=== PATIENT | male | born 1995 | race Hispanic/Latino ===

== ENCOUNTER 2016-12-31 22:10 | Emergency (ER) | payer SELFPAY ==
[~2016-12-31] VITALS: Ht 170.2 cm; Wt 75.0 kg
[~2016-12-31 22:10] MED LIST: IBUP-1827 PO; ONDA8TAB10 PO
[2016-12-31 22:22] VITALS: BP 138/89; PULSE 70; RESP 16; O2SAT 98
--- NOTE | 2016-12-31 22:55 | ED.REPORT ---
HPI-Extremity Problem Lower Date of Service December 31, 2016 ED Provider: Dr. Higuera 21 y/o male with a hx of MCL tear to right knee (several years ago) presents to the ED complaining of right knee injury, just prior to arrival. The pt reports he was playing volleyball when he came down after a jump and landed on his knee. He has been unable to bear weight on that knee since. Nursing Notes Stated Complaint: R KNEE PAIN OR INJURY Chief Complaint: Extremity Trauma Nursing Notes Reviewed: Yes Allergies: Coded Allergies: No Known Allergies (Unverified Allergy, Unknown, 12/31/16) Scheduled Ondansetron ODT (Ondansetron ODT) 8 Mg Tab.rapdis 8 MG PO QID Scheduled PRN Ibuprofen (Ibuprofen) 600 Mg Tablet 600 MG PO QID PRN PRN For Pain General Time Seen by MD: 22:54 Chief Complaint Knee injury right Hx Obtained From: Patient Arrived By: Walk-in Onset Occurred: Just prior to arrival Symptom Duration: Since onset Caused by: Sports injury Location: : Knee right Quality: Painful Severity: Current: Severe Severity: Maximum: Severe Recent Healthcare: No recent doctor visit Similar Sx Previous: No Past Medical History Past Medical History MLC tear of right knee (several years ago) Reports: Asthma Past Surgical History None reported Family History Reports: Diabetes mellitus Reports: Cancer Smoking History Unknown if Ever Smoker Social History Other Social History: Good social support, Local resident Ambulatory Status Independent Review of Systems Musculoskeletal: Reports: Joint pain (Right knee) Complete sys rev & neg: except as marked. Physical Exam Initial Vital Signs Vital Signs (First) Date Time Temp Pulse Resp B/P Pulse Ox O2 Delivery O2 Flow Rate FiO2 12/31/16 22:22 36.3 70 16 138/89 98 Room Air Initial VS: Reviewed Head / Eyes: Atraumatic, Normocephalic Neck: Supple, Full range of motion Respiratory: Breath sounds normal, No respiratory distress Cardiovascular: Regular rate & rhythm, Intact distal pulses Upper Extremities: Vascular intact, Neuro intact, No swelling, No tenderness Skin: Warm, Dry, No cyanosis Neurologic: Alert, Oriented, Nonfocal Lower Extremity / Pelvis / MS: No swelling, No deformity, Neurologic intact, Vascular intact Unable to bear weight on right knee. Doesn't tolerate palpation of knee joint. Complains of severe pain with minimal pressure. Therefore further exam in not taken. Ankle / Foot: Atraumatic, Full range of motion, Non-tender, No deformity, Neurologic intact, Vascular intact General/Constitutional: Awake, Alert, No acute distress, Cooperative Interpretation & Diagnostics X-Ray Interpretation Xray Interpretation: Result: No acute injury X-Ray Ordered: Knee right Interpretation / Wet Read by: Wet read ED physician Procedures Splint Application - Fx Mgt Splint Application- Fx Mgt: Long leg knee immobilizer Time: 23:20 Procedure Performed by: ED physician Precise Anatomic Location: Right knee Definitive Fracture Care: Pain control, Splint, Performed by me Post-Procedure / Complications: Cap refill normal, Post splint vascular nl, Post splint neuro nl, Condition improved, Tolerated procedure well, Patient stable Re-Eval/Medical Decision Source of Hx: Old records Re-Evaluation/Progress : Time of Eval: 23:20 Re-Evaluation/Progress Note: Rechecked pt. Discussed imaging results and diagnosis. Informed the pt of the plan to discharge. Pt understands and agrees with plan. F/U instructions and RTER warning given. All questions addressed. Counseled Regarding: Diagnosis, Lab results, Need for follow-up, When/why to return to ED Discharge & Departure Impression: Primary Impression: Internal derangement of right knee Disposition: Home Discharge Condition All VS Reviewed: Yes Condition: Stable Patient Instructions: Crutch Instructions (ED) Additional Instructions: ED evaluation included interview, exam and x-ray. There is no bony abnormality of the R knee. It is important that you follow up with orthopedics for further evaluation. Call them Sunday to make an appointment. Wear the knee immobilizer and use crutches. Ice to knee 3-4 times a day, keep ice wrapped in a towel. Ibuprofen 600mg 3-4 times a day, may use hydrocodone/apap for severe pain. Referrals: Reji Flannery MD (PCP) Scribe Attestation Portions of this note were transcribed by Marychuy Abdalla. I, , personally performed the history, physical exam and medical decision-making;I reviewed and confirmed the accuracy of the information in the transcribed note. Signed by Alfredo Roberto. 01/01/17 00:08 copies to: Reji Flannery MD, Donald L MD December 31, 2016 22:55 Marychuy Abdalla December 31, 2016 23:15
[2016-12-31] MEDS ORDERED: _HYDROcodone/APAP 5-325 mg Tablet PO PRN (23:30)
[2017-01-01 00:14] VITALS: BP 128/80; PULSE 72; RESP 16; O2SAT 99
--- NOTE | 2017-01-01 07:44 | DRSVH ---
PROCEDURE: X-RAY RIGHT KNEE, THREE VIEWS ([id number]) INDICATIONS: Pain from landing wrong TECHNIQUE: 3 views of the knee were acquired. COMPARISON: [facility], MR, KNEE RT W/O CONTRAST, 07/22/2012, 11:31. [facility], CR, KNEE 1 OR 2VW (RT), 06/07/2012, 13:36. FINDINGS: Bones: No fractures or dislocations. No suspicious bony lesions. Soft tissues: No joint effusion. No suspicious soft tissue calcifications. IMPRESSION: No acute fracture. No osseous lesion. If clinical suspicion and/or symptoms persist, fur ther assessment with repeat plainfilms, or advanced imaging (e.g., CT, MRI, or bone scan) may be help ful for further assessment. Concordant with preliminary interpretation. Dictated by: Regino Walker M.D. on 01/01/2017 at 7:42 Approved by: Regino Walker M.D. on 01/01/2017 at 7:42
== END 2017-01-01 00:15 | disposition home or self-care (01) ==
LOC: SED 22:10
DX: M23.91 Unspecified internal derangement of right knee (principal); X50.1XXA Overexertion from prolonged static or awkward postures, initial encounter; Y93.68 Activity, volleyball (beach) (court); Y92.89 Other specified places as the place of occurrence of the external cause; Y99.8 Other external cause status; J45.909 Unspecified asthma, uncomplicated

== ENCOUNTER → 2017-02-28 | Day surgery (SDC) | payer OTHER ==
[~2017-02-28] VITALS: Ht 167.6 cm; Wt 77.5 kg
[2017-02-28] VITALS (8 sets, daily range): BP systolic 116–140; BP diastolic 63–82; PULSE 56–74; RESP 16–18; O2SAT 94–100
[~2017-02-28] MED LIST changes: +CeFAZolin 2 Gm/50 mL D5W IV Premix IV ONE; +Dexamethasone 4 mg/mL Inj IVPUSH PRN; +Dexamethasone 4 mg/mL Inj ONE; +EPHEDrine Sulfate 50 mg/mL Inj IVPUSH PRN; +HYDR-4003 PO; +HYDROcodone-APAP 5-325 mg Tablet PO PRN; +HYDROmorphone 1 mg/mL Inj IVPUSH PRN; -IBUP-1827 PO; +Ketorolac 15 mg/mL Inj IVPUSH ONE; +Lactated Ringer's 1,000 ML IV SCH; +Lactated Ringer's 500 ML IV PRN; +MetoCLOpramide 5 mg/mL 2 mL Inj IVPUSH PRN; -ONDA8TAB10 PO; +Ondansetron 2 mg/mL 2 mL Inj IVPUSH PRN; +Ondansetron 2 mg/mL 2 mL Inj ONE; +Phenylephrine 10,000 mCg/mL Inj IVPUSH PRN; +Propofol 10,000 mCg/mL 20 mL Inj ONE; +Ropivacaine-PF 0.5% 30 mL Inj INFILTRATE ONE; +fentaNYL-PF 50 mCg/mL 2 mL Inj IVPUSH PRN; +fentaNYL-PF 50 mCg/mL 2 mL Inj ONE
[2017-02-28] MEDS: Lactated Ringer's 1,000 ML IV SCH ×2 (08:41→10:36)
--- NOTE | 2017-02-28 10:38 | PCM.ORTHOP ---
Orthopedic Operative Report Date of Service: Feb 28, 2017 Pre Operative Diagnosis Right knee medial meniscus tear Post Operative Diagnosis Same Procedure Right knee arthroscopy, medial meniscus repair, partial synovectomy Surgeon Surgeon: Timothy Haskins MD Assistants: None Indication for Procedure Right knee meniscus tear Findings Per dictation Details of Procedure INDICATIONS: Raphael De Leon is a 21-year-old male who has had a history of right knee pain. The patient has failed conservative management. X-rays show the tibiofemoral joints to be preserved with no DJD. MRI was obtained which reveals medial meniscus tear. The patient has had persistent symptoms and is now brought to the operating room for arthroscopy. The risks, benefits, and alternatives of surgery were discussed with the patient. The risks included but were not limited to infection, bleeding, damage to vessels and nerves, loss of motion, continued pain, re-tear of the meniscus, deep venous thrombosis, and complications due to anesthesia including nerve injury, myocardial infarction, stroke, , etc. The patient stated understanding of the nature of the surgical procedure and gave written and verbal consent to proceed. PROCEDURE: The patient was brought to the operating room and placed supine on the operating room table. After the administration of general anesthesia the patient was placed in the supine position. Examination of the knee revealed no evident instability with a trace effusion. All prominences were padded with appropriately and neurovascular structures protected. The right knee was confirmed to be the appropriate site following surgical time out. The right lower extremity was examined under anesthesia. Range of motion was 0-135 degrees. There was no varus or valgus or anterior or posterior instability. The right lower extremity was then prepped and draped in the usual fashion. Sterile prep and drape was then undertaken of the knee. The knee joint was injected with 20 ccs of 1% Lidocaine, along with 3 ccs of 1 % lidocaine in the medial and lateral portal sites respectively. A standard anterolateral parapatellar stab wound was created. The knee joint was entered with a blunt- tipped obturator, followed by the 30-degree video arthroscope. An anteromedial portal was established under arthroscopic control. A routine arthroscopic survey was performed. The patellofemoral joint showed grade 0/1 chondromalacia which was debrided down to stable tissue with a shaver. The medial joint space was then entered. The articular surfaces showed grade 0/ 1 chondromalacia. A red white posterior horn and body tear was noted .. A rasp was used to freshen the surfaces and shaver to remove frayed edges without removing pertinent meniscus. 2 FasT-Fix Elaine and nephew sutures were used to repair the meniscus. The ACL and PCL were noted to be intact. The lateral joint space was then entered. The articular surfaces were intact with grade 0/1chondromalacia. There was a degenerative tear to the lateral aspect of the lateral meniscus that was stable that did not need a meniscectomy. Moderate synovitis was noted anteriorly in the medial and lateral compartment and debrided with a shaver. The knee was irrigated with an additional 2 liters of lactated Ringer's solution. Excess fluid was drained. The portals were closed with 3-0 nylon as well as xeroform. The knee was injected with 20 mL of 0.5% ropivacaine. A dry sterile dressing was applied, followed by an SUNSHINE hose, soft roll, and URSZULA bandage. The patient was awakened in the operating room and transported to the recovery room in satisfactory condition. The patient appeared to tolerate the procedure well. At the completion of surgery the patient had soft compartments , palpable pulses, and brisk capillary refill. There were no complications noted. Please keep dressing clean dry and intact. Do not remove dressing until follow- up in clinic. If the dressing become soaked, you may remove the outer gauze and placed Band-Aids on the wounds. You may weight-bear as tolerated and maintain motion of your knee by bending it daily. You will follow up in clinic in 10-14 days for suture removal, and placement of new Steri-Strips. You will follow-up with me in clinic, and we will start physical therapy if needed. You will follow-up with me at 6 weeks postop and 12 weeks postop and will be released after that if improved. Please keep the affected extremity elevated when possible. Please take aspirin as prescribed. You may use ice and/ or heat as needed for comfort. (preferably ice during the first 48-72 hours) Please feel free to call with any further questions, comments, and/or concerns. Grafts, Implants: None Complications There were no periprocedural complications identified. Condition Stable Anesthetic Administered: GA Catheters: None Output, Estimated Blood Loss: 5 Blood Admin during surgery: No Surgical Cast or Splint: Other Surgical Specimen Removed: No Specimen sent to Pathology: No copies to: Timothy Haskins MD, Christopher L MD Feb 28, 2017 10:38
--- NOTE | 2017-02-28 10:54 | PCM.HPANE ---
Patient Data Surgeon Admitting Provider: Attending Provider:Timothy Haskins MD Primary Care Physician:Beka Other Provider:Clay Kwon Anesthesia Reason for Visit Right Knee Meniscal Tear Ht/WT & BMI Height (Feet): 5 Height (Inches): 6.00 Weight (Kilograms): 77.5 Body Mass Index 27.00 Allergies Coded Allergies: No Known Allergies (Unverified Allergy, Unknown, 02/23/17) Past Anesthesia History Anesthesia History: Denies:: Abnormal Airway, Anesthesia Reactions, Difficult Intubation, Fam Anesthesia Reaction, Fam Malignant Hypertherm, Malignant Hyperthermia Diabetes History Hx Diabetes?: No Medications Home Meds Incl Beta Jordy: No Reported Medications Hydrocodone-Acetaminophen 5-325 mg 1 Each Tablet1 Tablet PO Q4H PRN For Pain Ref 0 02/23/17 Discontinued Scripts Ondansetron ODT 8 Mg Tab.rapdis8 Mg PO QID #10 TABLET Prov:Timothy Carranza MD 03/24/16 Ibuprofen 600 Mg [id number] Mg PO QID PRN For Pain #30 TABLET Prov:Timothy Carranza MD 12/04/15 History History of ENT Problems?: No HEENT History: Denies:: Abnormal Airway Cataracts Difficult Intubation Dysphagia Glaucoma Hearing Problem Sinus Problem TMJ Denture Type: None Teeth Condition: Within Normal Limits Hx of Heart Problems?: No Cardiovascular History: Denies:: Congestive Heart Failure Hypertension Hx of Respiratory Problem?: No Respiratory History: Denies:: Oxygen Administration Tuberculosis Use of C-PAP Machine Hx Neurologic Problems?: No Hx of GI Problems?: No Hx of Problems?: No Male Hx: Denies:: Prostate Problems Hx Musculoskeletal Problems?: Yes Musculoskeletal History: Positive for:: Musculoskeletal Trauma (right knee current admission problem- prior hx mcl injury) Hx of Psycho/Social Problems?: No Hx Surgeries?: No Hx Any Other Health Problems?: Yes Hx Diabetes: No Hx Alcohol Use: NoHx Substance Use: No Smoking Status: Unknown if Ever Smoker Have You Smoked inLast 12 mo: No Stop/Bang S-Snoring: Do You Snore Loudly: Yes T-Tired: feel tired, fatigued: No O-Obsered: Observed not breath: No P-Blood Pressure: treated: No B- Body Mass Index > 35 kg/m2: No A- Age over 50: No N- Neck Large Circumference: No G- Gender Male: Yes CARMEN Total Score: 2 CARMEN Risk Assessment: Low Risk, <3 Yes Risk Assessment Category Category 1A: Patient has history of documented sleep apnea, and HAS NOT received any narcotic, sedative or anesthesia administration during this stay. Category 1B: Patient has history of documented sleep apnea, and HAS received any narcotic , sedative or anesthesia administration during this stay Category 2: Patient has SUSPECTED Obstructive Sleep Apnea, and HAS received any narcotic , sedative or anesthesia administration during this stay. Category 3: Patient has SUSPECTED Obstructive Sleep Apnea and HAS NOT received narcotic, sedative or anesthesia administration during this stay. Category 4: Outpatient in Procedural Areas with known sleep apnea or who screen positive for High Risk via the STOP/BANG questionnaire. Exam Exam Vital Signs Vital Signs Date Time Temp Pulse Resp B/P Pulse Ox O2 Delivery O2 Flow Rate FiO2 02/28/17 09:00 36.5 60 16 140/80 99 Room Air General Appearance: Alert HEENT/AIRWAY: MP 2, Neck Movement (from, 3 fb) Lungs: Clear to Auscultation Heart: Regular Rate/Rhythm Meds/Labs/Diagnostics Admission Meds Current Medications Lactated Ringer's (Lr) 1,000 ml @ 120 mls/hr Q8H20M IV Last administered on t 08:41; Start 02/28/17 at 05:00; Stop 02/28/17 at 13:19 Plan Impression Patient chart reviewed, patient interviewed and anesthestic plan with risks, benefits, and alternatives discussed, and informed consent obtained. NPO per Anesth. Guidelines: Yes ASA Physical Status: ASA1 Normal Healthy Anesthetic Plan: GA Bene/Risks/Altern/Consents: Yes HP Complete Prior to Induction: Yes Luis Alberto Quan MD Feb 28, 2017 09:26
--- NOTE | 2017-02-28 12:46 | PCM.ANEP1 ---
Post Anesthesia PACU Phase 1 Assessment Vital Signs Vital Signs Date Time Temp Pulse Resp B/P Pulse Ox O2 Delivery O2 Flow Rate FiO2 02/28/17 12:07 60 17 129/75 97 Room Air 02/28/17 12:00 36.1 74 16 138/80 99 Room Air 02/28/17 11:55 69 16 134/82 98 Room Air 02/28/17 11:45 64 16 126/79 98 Room Air 02/28/17 11:40 72 16 131/76 99 Room Air 02/28/17 11:32 36.4 61 18 123/77 100 Simple Mask 8 02/28/17 09:00 36.5 60 16 140/80 99 Room Air Anesthetic Administered: GA Level of Alertness: Awake, talking GARCIA's with Equal Strength: Yes Pain: No Nausea or Vomiting: No CV Function & Hydration Stable: Yes Airway Device: Oxygen Delivery: Simple Mask Lungs: Clear to Auscultation Dermatome Level: Full Sensation PACU Phase 2 Assessment Complications: No Follow up Care: N/A Patient Instructions Provided: N/A Luis Alberto Quan MD Feb 28, 2017 12:46
== END | disposition home or self-care (01) ==
LOC: SAS 08:32
PROVIDERS: ATTEND Orthopaedic Surgery
DX: S83.231A Complex tear of medial meniscus, current injury, right knee, initial encounter (principal); X50.0XXA Overexertion from strenuous movement or load, initial encounter; Y93.68 Activity, volleyball (beach) (court); M22.41 Chondromalacia patellae, right knee; M65.861 Other synovitis and tenosynovitis, right lower leg
CPT/HCPCS: 29881; C1713; J0690; J1100; J1885; J2250; J2405; J2795; J3010; J7120

== ENCOUNTER 2017-04-05 01:46 | Emergency (ER) | payer MEDICAID, OTHER ==
[~2017-04-05] VITALS: Ht 167.6 cm; Wt 75.0 kg
[~2017-04-05 01:46] MED LIST changes: -CeFAZolin 2 Gm/50 mL D5W IV Premix IV ONE; -Dexamethasone 4 mg/mL Inj IVPUSH PRN; -Dexamethasone 4 mg/mL Inj ONE; -EPHEDrine Sulfate 50 mg/mL Inj IVPUSH PRN; -HYDROcodone-APAP 5-325 mg Tablet PO PRN; -HYDROmorphone 1 mg/mL Inj IVPUSH PRN; -Ketorolac 15 mg/mL Inj IVPUSH ONE; -Lactated Ringer's 1,000 ML IV SCH; -Lactated Ringer's 500 ML IV PRN; -MetoCLOpramide 5 mg/mL 2 mL Inj IVPUSH PRN; -Ondansetron 2 mg/mL 2 mL Inj IVPUSH PRN; -Ondansetron 2 mg/mL 2 mL Inj ONE; -Phenylephrine 10,000 mCg/mL Inj IVPUSH PRN; -Propofol 10,000 mCg/mL 20 mL Inj ONE; -Ropivacaine-PF 0.5% 30 mL Inj INFILTRATE ONE; -fentaNYL-PF 50 mCg/mL 2 mL Inj IVPUSH PRN; -fentaNYL-PF 50 mCg/mL 2 mL Inj ONE
[2017-04-05 01:48] VITALS: BP 148/99; PULSE 64; RESP 16; O2SAT 98
--- NOTE | 2017-04-05 01:57 | ED.REPORT ---
HPI-Chest Pain Under 40 Date of Service Apr 05, 2017 ED Provider: Dr. Noel Pt is a 21 year old male presenting to the ED complaining of left sided chest pain and tightness onset a week ago. Associated symptoms include feeling hot and right knee pain. He states that the whole left side of his body feels hot. Denies SOB currently, nausea, vomiting, or abdominal pain. Pain is exacerbated by laying down. Pt reports that 3 years ago he had similar symptoms when he had a caffeine overdose so he is concerned. He had a right meniscus surgery 3 weeks ago, which is healing well. Nursing Notes Stated Complaint: CHEST PAIN, TIGHTNESS IN CHEST, ARM FEELING HOT Chief Complaint: Chest Pain Nursing Notes Reviewed: Yes Allergies: Coded Allergies: No Known Allergies (Unverified Allergy, Unknown, 04/05/17) Scheduled PRN Hydrocodone-Acetaminophen 5-325 mg (Hydrocodone-Acetaminophen 5-325 mg) 1 Each Tablet 1 TABLET PO Q4H PRN PRN For Pain General Time Seen by MD: 01:57 Chief Complaint Chest pain Hx Obtained From: Patient Arrived By: Walk-in Sudden in Onset?: No Onset Occurred: 1 week ago Symptom Duration: Since onset Location: : Chest left Quality: Painful Severity: Current: Pain level 7 out of 10 Severity: Maximum: Pain level 8 out of 10 Recent Healthcare: No recent doctor visit, No recent hospitalization Similar Sx Previous: Yes Past Medical History Past Medical History MLC tear of right knee (several years ago) Reports: Asthma Past Surgical History Right knee meniscus repair Family History Reports: Diabetes mellitus Reports: Cancer Smoking History Unknown if Ever Smoker Social History Other Social History: Good social support, Local resident Ambulatory Status Independent Review of Systems Review of Systems Note: Right side of body feels hot Respiratory: Denies: Shortness of breath Cardiovascular: Reports: Chest pain GI: Denies: Abdominal pain, Nausea, Vomiting Musculoskeletal: Reports: Extremity pain, Joint pain Complete sys rev & neg: except as marked. Physical Exam Initial Vital Signs Vital Signs (First) Date Time Temp Pulse Resp B/P Pulse Ox O2 Delivery O2 Flow Rate FiO2 04/05/17 01:48 36.7 64 16 148/99 98 Room Air Initial VS: Reviewed Head / Eyes: Atraumatic, Normocephalic, PERRL ENT: Mucous membranes moist, Conjunctiva normal, No scleral icterus Abdomen / GI: Soft, Non-tender, No guarding, No rebound, No distention Extremities: Vascular intact, Neuro intact, No swelling, No tenderness Skin: Warm, Dry, No cyanosis Neurologic: Alert, Oriented, Nonfocal Psychiatric: Mood/affect normal, Behavior normal, Normal thought content General/Constitutional: Awake, Alert, No acute distress Respiratory / Chest: Atraumatic, Breath sounds NL, Breath sounds = bilat, No respiratory distress Pain with palpation of left costochondral junction Cardiovascular: Heart rate NL, Regular rhythm, Heart sounds NL, No murmurs, Peripheral circulation NL, Pulses = bilaterally, No gross BP differential Lower Extremity / Pelvis / MS: No deformity, Neurologic intact, Vascular intact Brace present right lower extremity. No swelling, pain or palpable bands/cords on posterior right leg. Interpretation & Diagnostics Lab Results Interpretation Result Diagram: 04/05/17 0210 04/05/17 0210 Test 04/05/17 02:00 04/05/17 02:10 Hold Urine Received (Received) White Blood Count 5.4th/mm3 (3.8-10.1) Red Blood Count 4.91mil/mm3 (4.40-5.80) Hemoglobin 14.7g/dL (13.8-17.2) Hematocrit 42.6% (41.0-50.0) Mean Corpuscular Volume 86.8fL (81-100) Mean Corpuscular Hemoglobin 29.9pg (27.0-35.0) Mean Corpuscular Hemoglobin Concent 34.5% (32.0-37.0) Red Cell Distribution Width 12.2% (12.3-15.4) Platelet Count 197bil/L (150-400) Neutrophils (%) (Auto) 49.1% (40-74) Lymphocytes (%) (Auto) 37.2% (14-46) Monocytes (%) (Auto) 10.3% (4-12) Eosinophils (%) (Auto) 2.6% (0-5) Basophils (%) (Auto) 0.6% (0-3) Sodium Level 140mEq/L (134-144) Potassium Level 3.9mEq/L (3.5-5.2) Chloride Level 100mEq/L (97-108) Carbon Dioxide Level 24mmol/L (18-29) Blood Urea Nitrogen 13mg/dL (6-20) Creatinine 0.70mg/dL (0.76-1.27) Estimat Glomerular Filtration Rate 150mL/min (>59) Glucose Level 104mg/dL (60-99) Calcium Level 9.6mg/dL (8.5-10.1) Total Bilirubin 0.3mg/dL (0.0-1.2) Aspartate Amino Transf (AST/SGOT) 18U/L (0-50) Alanine Aminotransferase (ALT/SGPT) 19U/L (0-44) Alkaline Phosphatase 44U/L (25-150) Troponin T 0.010ug/L (0.0-0.011) Total Protein 7.9g/dL (6.4-8.4) Albumin 4.9g/dL (3.4-5.0) Hold Pavon Top Tube Received (Received) ECG Interpretation ECG Interpretation: Ventricular premature complex. T wave inverison in lead III. When compared to previous dated 12/03/2015 there are no significant changes. Time: 02:25 Interpreted by: ED physician Normal ECG Interpretation: Normal rate (61), Normal sinus rhythm X-Ray Chest Interpretation Chest Xray Interpretation: Normal chest x ray. View: AP & lat Interpretation / Wet Read by: Wet read ED physician Re-Eval/Medical Decision Med Decision/Clinical Course Patient's symptoms seem to be more consistent with anxiety, although he does have some left-sided chest wall pain which could be from costochondritis. There are no abnormalities seen on chest x-ray. His EKG is unchanged from previous and does not have any significant abnormalities. He is reassured and feeling better after he received Ativan and Toradol. I considered pulmonary embolus given his recent surgery, but his right lower extremity had no palpable bands or cords, there is no swelling, he is not tachycardic, and his oxygen is 100% on room air. Also he has been very active. Re-Evaluation/Progress : Time of Eval: 02:37 Patient Status: Condition improved Re-Evaluation/Progress Note: Pt reports that he is feeling better. Discussed plan for discharge. Pt understands and agrees. Counseled Regarding: Diagnosis, Lab results, Need for follow-up, When/why to return to ED Discharge & Departure Primary Impression: Costochondritis Additional Impression: Anxiety Disposition: Home Discharge Condition All VS Reviewed: Yes Condition: Improved Patient Instructions: Costochondritis (ED) Additional Instructions: Thank you for entrusting us with your care today. Your Chest x ray and EKG today both looked totally normal. Your labs are also reassuring. Follow up at a clinic in a couple of weeks. Take Toradol as prescribed for pain. Return to the ER if you develop any new or worsening symptoms. Referrals: [facility] Scribe Attestation Portions of this note were transcribed by Ana Laura Rodriguez. I, Dr Noel personally performed the history, physical exam and medical decision-making; I reviewed and confirmed the accuracy of the information in the transcribed note. Signed by: Alfredo Kinsey, 04/05/2017. copies to: [facility] Miguel Noel DO Apr 05, 2017 01:57 ANA LAURA RODRIGUEZ Apr 05, 2017 02:05
[2017-04-05] MEDS ORDERED: LORazepam 0.5 mg Tablet PO ONE (02:05)
[2017-04-05 02:26] LABS: BASOPHILS % (AUTO) 0.6 % (0-3); EOSINOPHILS % (AUTO) 2.6 % (0-5); MONOCYTES % (AUTO) 10.3 % (4-12); Mean Corpuscular Hemoglobin 29.9 pg (27.0-35.0); Mean Corpuscular Volume 86.8 fL (81-100); NEUTROPHILS % (AUTO) 49.1 % (40-74); Platelet Count 197 bil/L (150-400)
[2017-04-05 02:30] VITALS: BP 144/66; PULSE 61; RESP 20; O2SAT 98
[2017-04-05 03:00] VITALS: BP 130/74; PULSE 55; RESP 16; O2SAT 100
[2017-04-05 03:16] VITALS: BP 130/74; PULSE 55; RESP 16; O2SAT 100
--- NOTE | 2017-04-05 08:42 | DRSVH ---
PROCEDURE: X-RAY CHEST, TWO VIEWS ([id number]) INDICATIONS: SHORT OF BREATH, chest pain TECHNIQUE: 2 views of the chest were acquired. COMPARISON: None. FINDINGS: Surgical changes and devices: None. Lungs and pleura: No pleural effusions or pneumothorax. Lungs are clear. Mediastinum: Mediastinal contours are normal. Heart size is normal. Bones and chest wall: No suspicious bony abnormalities. Soft tissues appear unremarkable. IMPRESSION: No acute cardiopulmonary disease. Dictated by: Kenji Gamez [facility] Interpreted: Chaz Restrepo MD on 04/05/2017 at 8:37 Approved by: Chaz Restreop M.D. on 04/05/2017 at 8:40
== END 2017-04-05 03:17 | disposition home or self-care (01) ==
LOC: SED 01:46
DX: M94.0 Chondrocostal junction syndrome [Tietze] (principal); F41.9 Anxiety disorder, unspecified; M25.561 Pain in right knee; R20.8 Other disturbances of skin sensation; J45.909 Unspecified asthma, uncomplicated; Z98.890 Other specified postprocedural states
CPT/HCPCS: 36415; 71020; 80053; 84484; 85025; 93005; 96374; 99285; J1885